=== PATIENT | female | born 1955 | race African-American/Black ===

== ENCOUNTER → 2020-05-11 | Outpatient (CLI) | payer OTHER | LOC: CAT 09:39 | PROVIDERS: ATTEND Internal Medicine | DX: Z12.2 Encounter for screening for malignant neoplasm of respiratory organs (principal); I25.10 Atherosclerotic heart disease of native coronary artery without angina pectoris; I70.0 Atherosclerosis of aorta; K86.89 Other specified diseases of pancreas; Z87.891 Personal history of nicotine dependence ==

== ENCOUNTER → 2020-05-20 | Outpatient (CLI) | payer OTHER ==
[2020-05-20 10:07] LABS: CREATININE 0.7 mg/dL (0.6-1.0)
== END ==
LOC: MRI 08:53
PROVIDERS: ATTEND Internal Medicine
DX: I67.82 Cerebral ischemia (principal); H53.9 Unspecified visual disturbance